=== PATIENT | male | born 1950 | race Caucasian/White ===

== ENCOUNTER → 2017-01-15 | Outpatient (CLI) | payer MEDICARE ==
[2017-01-15 10:59] LABS: Basophils % (A) 0 %; CH 32.3; CHCM 34.8; Eosinophils # (A) 0.2 k/uL (0-0.7); Eosinophils % (A) 4 %; HCT 45.4 % (39.0-53.0); Luc # (Auto) 0.09; Luc % (Auto) 2; Lymphocytes # (A) 1.3 k/uL (1.0-4.8); Lymphocytes % (A) 29 %; MCH 30.7 pg (25.0-35.0); MCHC 32.9 g/dL (31.0-37.0); MCV 93.3 fL (80.0-100.0); Mean Platelet Volume 6.6; Monocytes # (A) 0.3 k/uL (0-1.0); Monocytes % (A) 7 %; Neutrophils # (A) 2.5 k/uL (1.3-7.7); Neutrophils % (A) 58 %; RBC 4.87 m/uL (4.30-5.90); RDW 12.6 % (11.5-15.5); WBC 4.3 k/uL (3.8-10.6); WBC (Perox) 4.33
[2017-01-15 11:47] LABS: ALT 34 U/L (21-72); AST 22 U/L (17-59); Blood Urea Nitrogen 15 mg/dL (9-20); C Reactive Protein <5.0 mg/L (<10.0); Non-African American GFR(MDRD) >60 (>60 ml/min/1.73 sqM)
[2017-01-15 13:34] LABS: Erythrocyte Sedimentation Rate 9 mm/hr (0-15)
== END | disposition home or self-care (01) ==
LOC: LABWHC1 10:22
PROVIDERS: ATTEND Internal Medicine Rheumatology
DX: N18.9 Chronic kidney disease, unspecified (principal); D63.8 Anemia in other chronic diseases classified elsewhere; M25.50 Pain in unspecified joint; R77.0 Abnormality of albumin; Z79.1 Long term (current) use of non-steroidal anti-inflammatories (NSAID)
CPT/HCPCS: 36415; 82040; 82565; 84450; 84460; 84520; 85025; 85652; 86140

== ENCOUNTER → 2017-12-22 | Outpatient (CLI) | payer MEDICARE ==
[2017-12-22 16:04] LABS: Basophils % (A) 0 %; Eosinophils # (A) 0.1 k/uL (0-0.7); Eosinophils % (A) 2 %; HCT 42.7 % (39.0-53.0); HGB 14.1 gm/dL (13.0-17.5); Lymphocytes # (A) 1.2 k/uL (1.0-4.8); Lymphocytes % (A) 26 %; MCH 30.3 pg (25.0-35.0); MCV 91.7 fL (80.0-100.0); Mean Platelet Volume 6.5; Monocytes # (A) 0.3 k/uL (0-1.0); Monocytes % (A) 5 %; Neutrophils # (A) 3.1 k/uL (1.3-7.7); Neutrophils % (A) 65 %; Platelet Count 165 k/uL (150-450); RBC 4.66 m/uL (4.30-5.90); RDW 12.7 % (11.5-15.5); WBC 4.7 k/uL (3.8-10.6)
[2017-12-22 16:17] LABS: ALT 23 U/L (21-72); AST 21 U/L (17-59); Albumin 4.2 g/dL (3.5-5.0); Blood Urea Nitrogen 12 mg/dL (9-20); C Reactive Protein <5.0 mg/L (<10.0); Total Bilirubin 0.6 mg/dL (0.2-1.3)
[2017-12-22 17:15] LABS: Calcium 9.5 mg/dL (8.4-10.2)
[2017-12-22 17:39] LABS: Erythrocyte Sedimentation Rate 9 mm/hr (0-15)
[2017-12-23 02:16] LABS: Parathyroid Hormone Intact 31.5 pg/mL (14.0-72.0)
[2017-12-23 04:24] LABS: Vitamin D 25 Hydroxy 31.9 ng/mL (30.0-100.0)
== END | disposition home or self-care (01) ==
LOC: LABWHC1 15:02
PROVIDERS: ATTEND Internal Medicine Rheumatology
DX: M35.3 Polymyalgia rheumatica (principal); G62.9 Polyneuropathy, unspecified; M25.50 Pain in unspecified joint; N18.9 Chronic kidney disease, unspecified; R77.0 Abnormality of albumin; E80.7 Disorder of bilirubin metabolism, unspecified; E55.9 Vitamin D deficiency, unspecified; E21.0 Primary hyperparathyroidism; Z79.1 Long term (current) use of non-steroidal anti-inflammatories (NSAID)
CPT/HCPCS: 36415; 82040; 82247; 82306; 82310; 82565; 83970; 84450; 84460; 84520; 85025; 85652; 86140

== ENCOUNTER 2024-01-25 18:39 | Observation (INO) | payer MEDICARE ==
--- NOTE | 2024-01-25 18:58 | ED ---
Dizziness HPI - General Chief Complaint: Dizziness Stated Complaint: Dizziness Time Seen by Provider: 01/25/24 18:55 Source: patient, EMS, RN notes reviewed, old records reviewed Mode of arrival: EMS Limitations: no limitations - History of Present Illness Initial Comments: This is a 73-year-old male to the ER for evaluation of some dizziness today. [facility] [place] he started at 2 PM with a room significantly spinning and difficulty with ambulation secondary to dizziness and feeling off balance. No history of heart disease no history of stroke MD Complaint: dizziness Timing: sudden onset, gradual onset Description: "room spinning", lightheadedness, off-balance, nausea, near-syncope History of Same: No History of Trauma: No Severity: moderate Improves With: nothing Worsens With: nothing Associated Symptoms: denies other symptoms - Related Data Home Medications Medication Instructions Recorded Confirmed Aspirin EC [Ecotrin Low Dose] 81 mg PO DAILY 01/26/24 01/26/24 Carbidopa-Levodopa 25-100 mg 2 tab PO TID@0700,1200,1700 01/26/24 01/26/24 [Sinemet 25-100 mg] Cholecalciferol (Vitamin D3) 50 mcg PO DAILY 01/26/24 01/26/24 [Vitamin D3 (50 Mcg = 2000 Iu)] Cyanocobalamin (Vitamin B-12) 1,000 mcg PO DAILY 01/26/24 01/26/24 [Vitamin B-12] Multivitamins, Thera [Multivitamin 1 tab PO DAILY 01/26/24 01/26/24 (formulary)] Pregabalin [Lyrica] 50 mg PO HS 01/26/24 01/26/24 Psyllium Husk [Metamucil] 0.4 gm PO BID 01/26/24 01/26/24 Rosuvastatin Calcium [Crestor] 5 mg PO DAILY 01/26/24 01/26/24 Allergies Allergy/AdvReac Type Severity Reaction Status Date / Time No Known Allergies Allergy Verified 01/26/24 07:07 Review of Systems ROS Statement: Those systems with pertinent positive or pertinent negative responses have been documented in the HPI. ROS Other: All systems not noted in ROS Statement are negative. Past Medical History Past Medical History: Neurologic Disorder Additional Past Medical History / Comment(s): Parkinson's, Neuropathy, Exposed to agent orange and contaminated water [place], has PVC's History of Any Multi-Drug Resistant Organisms: None Reported Past Surgical History: Orthopedic Surgery Additional Past Surgical History / Comment(s): left knee cyst and minuscus repair, left ankle. Past Psychological History: No Psychological Hx Reported Smoking Status: Never smoker Past Alcohol Use History: None Reported Past Drug Use History: None Reported General Exam Limitations: no limitations General appearance: alert, in no apparent distress Head exam: Present: atraumatic, normocephalic, normal inspection Eye exam: Present: normal appearance, PERRL, EOMI. Absent: scleral icterus, conjunctival injection, periorbital swelling ENT exam: Present: normal exam, mucous membranes moist Neck exam: Present: normal inspection. Absent: tenderness, meningismus, lymphadenopathy Respiratory exam: Present: normal lung sounds bilaterally. Absent: respiratory distress, wheezes, rales, rhonchi, stridor Cardiovascular Exam: Present: regular rate, normal rhythm, normal heart sounds. Absent: systolic murmur, diastolic murmur, rubs, gallop, clicks GI/Abdominal exam: Present: soft, normal bowel sounds. Absent: distended, tenderness, guarding, rebound, rigid Extremities exam: Present: normal inspection, full ROM, normal capillary refill. Absent: tenderness, pedal edema, joint swelling, calf tenderness Back exam: Present: normal inspection Neurological exam: Present: alert, oriented X3, CN II-XII intact Psychiatric exam: Present: normal affect, normal mood Skin exam: Present: warm, dry, intact, normal color. 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 ] Respiratory 18 18 18 Rate Blood Pressure 183/88 150/79 135/72 Blood Pressure [Left Arm] O2 Sat by Pulse 98 96 95 Oximetry 01/26/24 01/26/24 01/26/24 00:00 02:00 06:00 Temperature Pulse Rate 49 L 48 L 45 L Pulse Rate [ 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 ] Respiratory 18 18 16 Rate Blood Pressure 119/67 131/69 125/64 Blood Pressure [Left Arm] O2 Sat by Pulse 95 95 93 L Oximetry 01/26/24 01/26/24 01/27/24 10:27 18:59 00:00 Temperature 97.8 F Pulse Rate 48 L 86 Pulse Rate [ 59 L 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 ] Respiratory 18 18 18 Rate Blood Pressure 139/73 136/63 Blood Pressure 136/65 [Left Arm] O2 Sat by Pulse 94 L 98 98 Oximetry 01/27/24 01/27/24 04:00 08:20 Temperature Pulse Rate 51 L Pulse Rate [ 47 L 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 ] Respiratory 16 16 Rate Blood Pressure 152/77 Blood Pressure 144/69 [Left Arm] O2 Sat by Pulse 95 98 Oximetry - Reevaluation(s) Reevaluation #1: 01/25/24 18:57 Medical records are reviewed Reevaluation #2: 01/25/24 21:44 Patient able to ambulate here in the ER without significant ataxia Reevaluation #3: 01/25/24 21:44 Patient informed of results questions answered Reevaluation #4: Was pt. sent in by a medical professional or institution (, PA, APPLICATION TECHNICAL DESIGNER, urgent care, hospital, or long term...) When possible be specific @ -no Did you speak to anyone other than the patient for history (EMS, parent, family, police, friend...)? What history was obtained from this source @ -no Did you review nursing and triage notes (agree or disagree)? Why? @ -agree Are old charts reviewed (outside hosp., previous admission, EMS record, old EKG, old radiological studies, urgent care reports/EKG's, long term records)? Report findings @ -yes Differential Diagnosis (chest pain, altered mental status, abdominal pain women, abdominal pain men, vaginal bleeding, weakness, fever, dyspnea, syncope, headache, dizziness, GI bleed, back pain, seizure, CVA, palpatations, mental health, musculoskeletal)? @ -prior EKG interpreted by me (3pts min.). @ -yes X-rays interpreted by me (1pt min.). @ -yes negative for acute disease CT interpreted by me (1pt min.). @ -Yes negative for acute disease U/S interpreted by me (1pt. min.). @ -no What testing was considered but not performed or refused? (CT, X-rays, U/S, labs)? Why? @ -none What meds were considered but not given or refused? Why? @ -none Did you discuss the management of the patient with other professionals (professionals i.e. , PA, APPLICATION TECHNICAL DESIGNER, lab, RT, psych nurse, social science teacher, thread laster, teacher, compliance review officer, case management assistant)? Give summary @ -no Was smoking cessation discussed for >3mins.? @ -no Was critical care preformed (if so, how long)? @ -no Were there social determinants of health that impacted care today? How? (Homelessness, low income, unemployed, alcoholism, drug addiction, transportation, low edu. Level, literacy, decrease access to med. care, residential, rehab)? @ -none Was there de-escalation of care discussed even if they declined (Discuss DNR or withdrawal of care, Hospice)? DNR status @ -no What co-morbidities impacted this encounter? (DM, HTN, Smoking, COPD, CAD, Cancer, CVA, ARF, Chemo, Hep., AIDS, mental health diagnosis, sleep apnea, morbid obesity)? @ -none Was patient admitted / discharged? Hospital course, mention meds given and route, prescriptions, significant lab abnormalities, going to OR and other pertinent info. @ - 73 male to ER for evaluation of vertigo. Central versus peripheral, patie nt CT CTA negative able to ambulate here in the ER, given aspirin will be an patient continues to feel worse here in the ER and will admit for further observation admitted Undiagnosed new problem with uncertain prognosis? @ -no Drug Therapy requiring intensive monitoring for toxicity (Heparin, Nitro, Insulin, Cardizem)? @ -no Were any procedures done? @ -no Diagnosis/symptom? @ -CVA vertigo versus TIA central versus peripheral Acute, or Chronic, or Acute on Chronic? @ -Acute Uncomplicated (without systemic symptoms) or Complicated (systemic symptoms)? @ -Complicated Side effects of treatment? @ -no Exacerbation, Progression, or Severe Exacerbation? @ -exacerbation Poses a threat to life or bodily function? How? (Chest pain, USA, GA, pneumonia, PE, COPD, DKA, ARF, appy, cholecystitis, CVA, Diverticulitis, Homicidal, Suicidal, threat to staff... and all critical care pts) @ -yes extremes of age with CVA Reevaluation #5: Differential Dizziness: Benign paroxysmal positional Vertigo, Meniere's disease, otitis media, acoustic neuroma, vertebrobasilar insufficiency, cerebellar stroke, encephalitis, hypovolemic, arrhythmia, coronary artery syndrome, anemia, this is not meant to be an all-inclusive list - Consultations Consultation #1: Spoke with admitting physicians who agreed to admit this patient EKG Findings - EKG Comments: EKG Findings:: EKG is sinus bradycardia 51 MD 139 QRS 109 QTc 407 - EKG Results: EKG: interpreted by YANCY Medical Decision Making - Medical Decision Making 73 male to ER for evaluation of vertigo. Central versus peripheral, patient CT CTA negative able to ambulate here in the ER, given aspirin will be an patient continues to feel worse here in the ER and will admit for further observation - Lab Data Result diagrams: 01/27/24 05:45 01/27/24 05:45 Lab Results 01/25/24 01/25/24 01/25/24 Range/Units 19:39 19:39 19:39 WBC 7.0 (3.8-10.6) k/uL RBC 4.68 (4.30-5.90) m/uL Hgb 15.0 (13.0-17.5) gm/dL Hct 43.8 (39.0-53.0) % MCV 93.4 (80.0-100.0) fL MCH 32.1 (25.0-35.0) pg MCHC 34.4 (31.0-37.0) g/dL RDW 13.1 (11.5-15.5) % Plt Count 181 (150-450) k/uL MPV 7.8 Neutrophils % 78 % Lymphocytes % 14 % Monocytes % 5 % Eosinophils % 1 % Basophils % 0 % Neutrophils # 5.5 (1.3-7.7) k/uL Lymphocytes # 1.0 (1.0-4.8) k/uL Monocytes # 0.3 (0-1.0) k/uL Eosinophils # 0.1 (0-0.7) k/uL Basophils # 0.0 (0-0.2) k/uL PT 10.4 (10.0-12.5) sec INR 0.9 (<1.2) APTT 22.0 (22.0-30.0) sec Sodium 139 (137-145) mmol/L Potassium 4.2 (3.5-5.1) mmol/L Chloride 107 (98-107) mmol/L Carbon Dioxide 27 (22-30) mmol/L Anion Gap 5 mmol/L BUN 13 (9-20) mg/dL Creatinine 0.82 (0.66-1.25) mg/dL Est GFR (CKD-EPI)AfAm >90 (>60 ml/min/1.73 sqM) Est GFR (CKD-EPI)NonAf 87 (>60 ml/min/1.73 sqM) Glucose 124 H (74-99) mg/dL Lactic Ac Sepsis Rflx Plasma Lactic Acid Darek (0.7-2.0) mmol/L Calcium 8.5 (8.4-10.2) mg/dL Phosphorus 2.5 (2.5-4.5) mg/dL Magnesium 1.8 (1.6-2.3) mg/dL Total Bilirubin 0.7 (0.2-1.3) mg/dL AST 27 (17-59) U/L ALT 9 (4-49) U/L Alkaline Phosphatase 64 (38-126) U/L Troponin I (0.000-0.034) ng/mL NT-Pro-B Natriuret Pep 84 pg/mL Total Protein 7.3 (6.3-8.2) g/dL Albumin 4.5 (3.5-5.0) g/dL Lipase 130 (23-300) U/L TSH 1.500 (0.465-4.680) mIU/L 01/25/24 01/25/24 01/25/24 Range/Units 19:39 19:39 20:16 WBC (3.8-10.6) k/uL RBC (4.30-5.90) m/uL Hgb (13.0-17.5) gm/dL Hct (39.0-53.0) % MCV (80.0-100.0) fL MCH (25.0-35.0) pg MCHC (31.0-37.0) g/dL RDW (11.5-15.5) % Plt Count (150-450) k/uL MPV Neutrophils % % Lymphocytes % % Monocytes % % Eosinophils % % Basophils % % Neutrophils # (1.3-7.7) k/uL Lymphocytes # (1.0-4.8) k/uL Monocytes # (0-1.0) k/uL Eosinophils # (0-0.7) k/uL Basophils # (0-0.2) k/uL PT (10.0-12.5) sec INR (<1.2) APTT (22.0-30.0) sec Sodium (137-145) mmol/L Potassium (3.5-5.1) mmol/L Chloride (98-107) mmol/L Carbon Dioxide (22-30) mmol/L Anion Gap mmol/L BUN (9-20) mg/dL Creatinine (0.66-1.25) mg/dL Est GFR (CKD-EPI)AfAm (>60 ml/min/1.73 sqM) Est GFR (CKD-EPI)NonAf (>60 ml/min/1.73 sqM) Glucose (74-99) mg/dL Lactic Ac Sepsis Rflx Y Plasma Lactic Acid Darek 2.3 H* (0.7-2.0) mmol/L Calcium (8.4-10.2) mg/dL Phosphorus (2.5-4.5) mg/dL Magnesium (1.6-2.3) mg/dL Total Bilirubin (0.2-1.3) mg/dL AST (17-59) U/L ALT (4-49) U/L Alkaline Phosphatase (38-126) U/L Troponin I <0.012 (0.000-0.034) ng/mL NT-Pro-B Natriuret Pep pg/mL Total Protein (6.3-8.2) g/dL Albumin (3.5-5.0) g/dL Lipase (23-300) U/L TSH (0.465-4.680) mIU/L - Radiology Data Radiology results: report reviewed (CT brain CTA head neck negative for acute disease), image reviewed Disposition Clinical Impression: Benign paroxysmal positional vertigo, Transient cerebral ischemia Disposition: ADMITTED IP TO THIS [facility] Condition: Fair Is patient prescribed a controlled substance at d/c from ED?: No Time of Disposition: 21:40
[2024-01-25] MEDS: SODIUM CHLORIDE 0.9% 1,000 ML IV STA (19:44)
[2024-01-25 19:58] LABS: INR 0.9 (<1.2); Prothrombin Time 10.4 sec (10.0-12.5)
[2024-01-25 20:04] LABS: ALT 9 U/L (4-49); AST 27 U/L (17-59); African American GFR (CKD) >90 (>60 ml/min/1.73 sqM); Albumin 4.5 g/dL (3.5-5.0); Alkaline Phosphatase 64 U/L (38-126); Anion Gap 5 mmol/L; Blood Urea Nitrogen 13 mg/dL (9-20); Calcium 8.5 mg/dL (8.4-10.2); Carbon Dioxide 27 mmol/L (22-30); Chloride 107 mmol/L (98-107); Glucose 124 mg/dL (74-99); Lipase 130 U/L (23-300); Magnesium 1.8 mg/dL (1.6-2.3); Non-African American GFR(CKD) 87 (>60 ml/min/1.73 sqM); Phosphorus 2.5 mg/dL (2.5-4.5); Potassium 4.2 mmol/L (3.5-5.1); Sodium 139 mmol/L (137-145); Total Bilirubin 0.7 mg/dL (0.2-1.3); Total Protein 7.3 g/dL (6.3-8.2)
--- NOTE | 2024-01-25 20:04 | CT ---
EXAMINATION TYPE: CT brain wo con DATE OF EXAM: 01/25/2024 7:31 PM COMPARISON: None.. CLINICAL INDICATION: Male, 73 years old with history of weakness, dizzy TECHNIQUE: Brain: Axial CT images of the brain were obtained with coronal and sagittal reformats created and rev iewed. Contrast used: None. Oral contrast used: None. CT DLP: 1189 mGycm, Automated exposure control for dose reduction was used. FINDINGS: Brain: Extra-axial spaces: No abnormal extra-axial fluid collections. Ventricular system: Within normal limits Cerebral parenchyma: No acute intraparenchymal hemorrhage or mass effect. The morataya-white junction is well differentiated. Cerebellum: Unremarkable. Mass effect: No evidence of midline shift. Intracranial vasculature: unremarkable Soft tissues: Normal. Calvarium/osseous structures: No depressed skull fracture. Paranasal sinuses and mastoid air cells: Mild scattered paranasal sinus disease. Visualized orbits: Orbital contents are intact. IMPRESSION: No acute intracranial process. [facility], , 01/25/2024 8:02 PM
[2024-01-25 20:05] LABS: Basophils % (A) 0 %; Eosinophils # (A) 0.1 k/uL (0-0.7); Eosinophils % (A) 1 %; HCT 43.8 % (39.0-53.0); Lymphocytes % (A) 14 %; MCH 32.1 pg (25.0-35.0); MCHC 34.4 g/dL (31.0-37.0); MCV 93.4 fL (80.0-100.0); Mean Platelet Volume 7.8; Monocytes # (A) 0.3 k/uL (0-1.0); Monocytes % (A) 5 %; Neutrophils # (A) 5.5 k/uL (1.3-7.7); Neutrophils % (A) 78 %; Platelet Count 181 k/uL (150-450); RBC 4.68 m/uL (4.30-5.90); RDW 13.1 % (11.5-15.5)
[2024-01-25 20:10] LABS: NT-Pro-B-Type Natriuretic Pept 84 pg/mL
[2024-01-25] MEDS: ONDANSETRON 4 MG/2 ML VIAL IVP STA (20:22)
[2024-01-25] MEDS: diphenhydrAMINE 50 MG/ML 1 ML VIAL IVP STA (20:23)
--- NOTE | 2024-01-25 21:32 | CT ---
EXAMINATION TYPE: CT angio head neck DATE OF EXAM: 01/25/2024 9:13 PM COMPARISON: none CLINICAL INDICATION: Male, 73 years old with history of dizzy; PHH, DIZZINESS TECHNIQUE: Axially acquired helical CT angiogram of the head and neck was obtained with contrast. Axi al images are supplemented with 3D reconstructions and MIP images which were post-processed at an in dependent workstation. NASCET criteria used. Contrast used:65ml mL of Isovue 370 with IV Contrast, Oral contrast used: None. CT DLP: 513 mGycm, Automated exposure control for dose reduction was used. FINDINGS: CTA HEAD: No evidence of acute intracranial hemorrhage, mass effect, or midline shift. The ventricles, sulci, a nd cisterns are unremarkable. Vertebral arteries: The vertebral arteries are patent. Vertebral artery dominance: Codominant Basilar artery: The basilar artery is intact. The basilar artery bifurcation is normal. Internal Carotid arteries: The cervical, petrous, cavernous and supraclinoid segments are normal. MEI: Patent with no evidence of aneurysm. ACOM: Present without evidence of aneurysm. MCA: Patent with no evidence of aneurysm. CONSTRUCTION PROJECT ASSISTANT: Patent with no evidence of aneurysm. PCOM: Hypoplastic bilaterally. Dural sinuses: Patent. CTA NECK: Right Carotid System: The common carotid artery and external carotid artery are patent. The carotid bifurcation demonstrate s no evidence of hemodynamically significant stenosis. The remaining portions of the internal carotid artery demonstrate normal size without significant narrowing. Left Carotid System: The common carotid artery and external carotid artery are patent. The carotid bifurcation demonstrate s no evidence of hemodynamically significant stenosis. The remaining portions of the internal carotid artery demonstrate normal size without significant narrowing. Vertebral arteries are patent without evidence hemodynamically significant stenosis. There is a 4-vessel aortic arch. The origins of the great vessels are patent. No evidence of hemodyna mically significant stenosis. Upper thorax: IMPRESSION: No evidence of dissection of the cervical internal carotid arteries or vertebral arteries. No any evidence of significant stenosis at the carotid bifurcations. No evidence of intracranial high-grade stenosis or intracranial aneurysm. [facility], , 01/25/2024 9:29 PM
[2024-01-25] MEDS: ASPIRIN 81 MG PO STA (22:08)
[2024-01-25] MEDS: ASPIRIN 325 MG TAB PO STA (22:26)
[2024-01-25] MEDS: SODIUM CHLORIDE 0.9% 1,000 ML IV SCH (22:27)
--- NOTE | 2024-01-26 10:27 | CA ---
Transthoracic Echo Report Name: Ty Castillo Age: 73 Gender: M : 1950 Exam Date: 01/26/2024 10:16 Exam Location: [facility] Ht (in): 68 Wt (lb): 175 Ordering Physician: Syed Guzmán DO Attending/Referring Phys: [id number], Ramirez Dining Server Krystina Gloria RDCS Procedure CPT: Indications: Thrombus Cardiac Hx: Technical Quality: Fair Contrast 1: Total Dose (mL): Contrast 2: Total Dose (mL): MEASUREMENTS (Male / Female) Normal Values 2D ECHO LV Diastolic Diameter PLAX 4.6 cm 4.2 - 5.9 / 3.9 - 5.3 cm LV Systolic Diameter PLAX 2.0 cm IVS Diastolic Thickness 1.1 cm 0.6 - 1.0 / 0.6 - 0.9 cm LVPW Diastolic Thickness 1.1 cm 0.6 - 1.0 / 0.6 - 0.9 cm LV Relative Wall Thickness 0.5 RV Internal Dim ED PLAX 2.4 cm LA Systolic Diameter LX 4.3 cm 3.0 - 4.0 / 2.7 - 3.8 cm LV Diastolic Volume MOD BP 54.7 cm??? 67 - 155 / 56 - 104 cm??? LV Systolic Volume MOD BP 27.0 cm??? 22 - 58 / 19 - 49 cm??? LV Ejection Fraction MOD BP 50.6 % >= 55 % LV Cardiac Index MOD BP 704.1 cm???/min???m??? LV Diastolic Volume MOD 4C 61.7 cm??? LV Systolic Volume MOD 4C 30.1 cm??? LV Ejection Fraction MOD 4C 51.2 % LV Cardiac Index MOD 4C 803.6 cm???/min???m??? LV Diastolic Length 4C 7.5 cm LV Systolic Length 4C 6.2 cm LV Diastolic Volume MOD 2C 44.6 cm??? LV Systolic Volume MOD 2C 23.1 cm??? LV Ejection Fraction MOD 2C 48.3 % LV Cardiac Index MOD 2C 547.7 cm???/min???m??? LV Diastolic Length 2C 6.8 cm LV Systolic Length 2C 5.8 cm LA Volume 57.1 cm??? 18 - 58 / 22 - 52 cm??? LA Volume Index 29.0 cm???/m??? 16 - 28 cm???/m??? M-MODE Aortic Root Diameter MM 2.1 cm LA Systolic Diameter MM 3.9 cm LA Ao Ratio MM 1.8 DOPPLER AI Peak Velocity 317.4 cm/s AI Peak Gradient 40.3 mmHg AI Pressure Half Time 917.0 ms MV Area PHT 3.9 cm??? Mitral E Point Velocity 92.7 cm/s Mitral A Point Velocity 95.2 cm/s Mitral E to A Ratio 1.0 MV Deceleration Time 194.0 ms TR Peak Velocity 240.6 cm/s TR Peak Gradient 23.2 mmHg Right Ventricular Systolic Press 27.9 mmHg FINDINGS Left Ventricle Left ventricular ejection fraction is estimated at 55-60 %. Mildly increased septal wall thickness.normal left ventricular wall motion. Left ventricular cavity size normal. Right Ventricle Mild right ventricular dilatation. Right ventricular systolic pressure within normal limits. Right Atrium Normal right atrial size. Left Atrium Mildly increased left atrial diameter. Mildly increased left atrial volume. Mitral Valve Structurally normal mitral valve. Mild mitral regurgitation. No mitral stenosis. Aortic Valve Trileaflet aortic valve. No aortic stenosis. Mild aortic regurgitation. Tricuspid Valve Structurally normal tricuspid valve. Mild tricuspid regurgitation. No tricuspid stenosis. Pulmonic Valve Structurally normal pulmonic valve. Trace pulmonic regurgitation. No pulmonic stenosis. Pericardium No pericardial or pleural effusion. Aorta Normal size aortic root and proximal ascending aorta. CONCLUSIONS Normal LV function Mild mitral regurgitation Mild aortic regurgitation No intracardiac thrombus identified on this study Consider transesophageal echo if clinically indicated Previewed by: Dr. Jean Pina MD (Electronically Signed) Final Date: 26 January 2024 10:26
[2024-01-26] MEDS: ASPIRIN 325 MG TAB PO SCH (10:29)
[2024-01-26] MEDS: CARBIDOPA-LEVODOPA ER 25-100MG 1 EACH TABLET.ER PO SCH (10:31)
[2024-01-26 11:01] LABS: Chol/HDL Ratio 3.71 Ratio; LDL Cholesterol,Calculated 70.2 mg/dL (0.0-131.0)
[2024-01-26] MEDS: CARBIDOPA-LEVODOPA 25-100 MG 1 EACH TAB PO SCH (12:28)
--- NOTE | 2024-01-26 14:44 | P.CNNES ---
History of Present Illness Consult date: 01/26/24 Requesting physician: Syed Guzmán Reason for Consult: vertigo History of Present Illness: This is a 73-year-old gentleman who presented emergency department because of dizziness. Patient is accompanied with his was at bedside. He states that he was dizzy and felt like the room is moving recently. Also yesterday when he came to the our facility he had episode of nausea and vomiting. He denies any new focal weakness, numbness, visual disturbance, any new ringing of the ears or hearing loss. He does have chronic tinnitus. He feels he is doing better today compared to yesterday. Denies any history of stroke. He denies any modification of his Parkinson's medication. He feels dizziness is mostly when getting up. Some of the work-up consists of: I personally reviewed the lab test TSH is 1.50 CT of the head is reported as no acute intracranial process. I personally reviewed the CT and I agree with the report CT angiography of the head and neck is reported as no evidence of dissection of cervical internal carotid artery or vertebral artery. No any evidence of significant stenosis at the carotid bifurcation. No evidence of intracranial high-grade stenosis or intracranial aneurysm. 2D echo was reported as normal left ventricular function. Mild mitral and aortic regurgitation. No intracardiac thrombus identified on the study. Review of Systems The positive and negative as per HPI. Past Medical History Past Medical History: Neurologic Disorder Additional Past Medical History / Comment(s): Parkinson's, Neuropathy, Exposed to agent orange and contaminated water at [facility], has PVC's History of Any Multi-Drug Resistant Organisms: None Reported Past Surgical History: Orthopedic Surgery Additional Past Surgical History / Comment(s): left knee cyst and minuscus repair, left ankle. Past Psychological History: No Psychological Hx Reported Smoking Status: Never smoker Past Alcohol Use History: None Reported Past Drug Use History: None Reported Medications and Allergies Home Medications Medication Instructions Recorded Confirmed Type Aspirin EC [Ecotrin Low Dose] 81 mg PO DAILY 01/26/24 01/26/24 History Carbidopa-Levodopa 25-100 mg 2 tab PO TID@0700,1200,1700 01/26/24 01/26/24 History [Sinemet 25-100] Cholecalciferol (Vitamin D3) 50 mcg PO DAILY 01/26/24 01/26/24 History [Vitamin D3 (50 Mcg = 2000 Iu)] Cyanocobalamin (Vitamin B-12) 1,000 mcg PO DAILY 01/26/24 01/26/24 History [Vitamin B-12] Multivitamins, Thera [Multivitamin 1 tab PO DAILY 01/26/24 01/26/24 History (formulary)] Pregabalin [Lyrica] 50 mg PO HS 01/26/24 01/26/24 History Psyllium Husk [Metamucil] 0.4 gm PO BID 01/26/24 01/26/24 History Rosuvastatin Calcium [Crestor] 5 mg PO DAILY 01/26/24 01/26/24 History Allergies Allergy/AdvReac Type Severity Reaction Status Date / Time No Known Allergies Allergy Verified 01/26/24 07:07 Physical Examination - Vital Signs Vital Signs: Vital Signs Temp Pulse Resp BP Pulse Ox 01/26/24 10:27 48 L 18 139/73 94 L 01/26/24 06:00 45 L 16 125/64 93 L 01/26/24 02:00 48 L 18 131/69 95 01/26/24 00:00 49 L 18 119/67 95 01/25/24 22:00 55 L 18 135/72 95 01/25/24 19:40 50 L 18 150/79 96 01/25/24 18:40 98.3 F 54 L 18 183/88 98 Intake and Output 01/25/24 01/26/24 01/26/24 22:59 06:59 14:59 Other: Weight 79.379 kg GENERAL: The patient is lying in bed and is not in acute distress. NEUROLOGICAL: Higher mental function: The patient is awake, alert, oriented to self, place and time. Patient is following commands. No aphasia and no neglect. Cranial nerves: The pupils are round, equal and reactive to light and accommodation. Visual yung are full to confrontation throughout. Extraocular movement is intact no nystagmus is noted. Facial sensation is normal to touch throughout. The facial strength is normal throughout. Hearing is normal bilaterally to hand rub. Tongue is midline and moved [id number] without any difficulty. No dysarthria is noted. Shoulder shrug is normal bilaterally. Motor: Gait is walking without assistance and has some shuffling gait (but states did not have his Parkinson's mediaiton yet) but otherwise normal. The strength is 5 over 5 throughout. Normal tone and bulk. Cerebellum: Normal finger to nose bilaterally. Sensation: Sensation is normal to touch throughout. Reflexes (right/left): 2+ Plantars are downgoing bilaterally. Results - Laboratory Findings CBC and BMP: 01/25/24 19:39 01/25/24 19:39 Abnormal Lab Findings: Abnormal Labs 01/25/24 01/25/24 01/26/24 19:39 19:39 06:37 Glucose 124 H Plasma Lactic Acid Darek 2.3 H* HDL Cholesterol 34.80 L Assessment and Plan Assessment: This is a 73-year-old gentleman who presents because of dizziness and he feels the room is moving and he had an episode of nausea vomiting. No focal deficit associate with it. He is feeling better today. Acute Vertigo and seems more peripheral. I doubt this is stroke or TIA. Ongoing Parkinson's disease Plan: Recommend MRI of the brain Ordered orthostatic vitals Patient was on home dose of Aspirin 81mg daily and it was increased to 325mg daily by ED team. ED physician placed the patient on Lipitor 80 mg nightly for secondary stroke fluxes and I lowered it to 4 mg nightly since I do not feel this is stroke. Upon discharge she does not need Lipitor and he can resume his home Crestor PT and OT and RAPID TRANSIT OPERATOR are consulted. Will defer the rest of the medical management to primary team and other specialist Plan discussed with the patient and his was at bedside Thank you for the consultation Time with Patient: Greater than 30
--- NOTE | 2024-01-26 17:59 | P.HPIM ---
History of Present Illness H&P Date: 01/26/24 Chief Complaint: Dizziness Patient is a 73-year-old male past medical history of parkinsonism who presented to the ED yesterday with dizziness. He states the dizziness started yesterday at 2 PM after which he tried to rest on his recliner. His symptoms did not improve when he got up and went to his bed. A couple hours later he reports that room was significantly spinning and he had difficulty with ambulation and he felt off balance. Does not report of any similar symptoms prior to this time. He mentions going to [place] a couple days ago where he drove couple hours to and fro and spent the entire day walking and shopping and had not drank enough water. Additionally he reports having motion sickness, he is dizzy even if his is in a rocking chair. Moreover he mentions that he has always had low heart rate, usually in the 50s and in the 40s when he is resting. Patient denies fever, chills, headache, chest pain, shortness of breath, palpitations, a bdominal pain, nausea, vomiting, hematuria, dysuria, hematochezia or melena, numbness, weakness or visual disturbance. He also mentions that he recently found out he had been exposed to agent orange and contaminated water when he was working in the . ED documentation reviewed and case discussed with ED provider. In the ED he was treated with aspirin 325 mg and aspirin 324 mg as well as 0.9 normal saline 100 mL/h along with diphenhydramine 25 mg IVP once and ondansetron 4 mg IVP once. Vitals on admission: T 98.3 F, P 54 bpm, RR 18, BP 183/88, O2 sat 98% on room air EKG: Independently interpreted as sinus bradycardia, rate 51 bpm, QTc [address]: No acute intracranial process CT angiography head and neck: No evidence of dissection of the cervical internal carotid arteries or vertebral arteries, no evidence of significant stenosis of the carotid bifurcation, no evidence of intracranial high-grade stenosis or intracranial aneurysm. 2D Echo: EF 55 to 60% normal LV function, mild MR, mild AR, no intracardiac thrombus. CBC: WBC 7, hemoglobin 15, platelet 181 Coagulation panel: PT 10.4, INR 0.9, APTT 22 CMP sodium 139, potassium 4.2, glucose 124, lactic acid 2.3->2.0 Lipid panel triglycerides 120, cholesterol 129, LDL 70.2, VLDL 24, HDL 34.8, lipase 130 TSH: 1.5 ProBNP: 84 Troponin: < 0.012 Review of systems: Pertinent positives and negatives as discussed in HPI, a complete review of systems was performed and all other systems are negative. PMH: Parkinsonism, neuropathy, tinnitus PSH: Orthopedic surgery, meniscus repair FMH: Diabetes mellitus Allergies: No known drug allergies Social history: Tobacco: Never smoker Alcohol: Denies use Recreational drugs: Denies use Travel: [place] couple days ago Sick contacts: None Physical examination: General: nontoxic, no distress, appears at stated age Derm: warm, dry, intact Head: atraumatic, normocephalic, symmetric Eyes: EOMI, anicteric sclera Mouth: no lip lesion, mucus membranes moist Cardiovascular: S1 S2 reg, no murmur Lungs: CTA bilateral, no rhonchi, no rales, no accessory muscle use Abdominal: soft, non-tender to palpataion Extremities: No cyanosis, clubbing, or pedal edema. Neuro: Alert, Oriented, Gross neurological examination did not reveal any focal deficits. Psych: well appearing, appropriate affect Assessment/Plan: Patient is a 73 year old male with PMH of Parkinsonism and neuropathy who presented to the ED with dizziness and room spinning. He has admitted for further workup of dizziness. #. Postural dizziness, secondary to orthostatic hypotension vs vertigo Possibly orthostatic hypotension secondary to Parkinson's disease Brain CT and CT angio H&N show no acute process, r/o stroke Orthostatics BID ordered Continue Aspirin 325mg PO QD and Atorvastatin 40 mg nightly Continue 0.9 normal saline at 100 ml/hr #. Parkinson's disease Continue home med Carbidopa-Levodopa F: 0.9 normal saline at 100ml/hr E: Replete as required N: Regular diet A: Ambulatory The patient is admitted with an anticipated less than 2 midnight stay for evaluation of dizziness CODE STATUS: Full Code Discussed with: Patient and Anticipated discharge place: Home Attestation Attestation/ International Controller Note: Attestation to Progress Note, Participation (I saw and evaluated the patient with the Resident, and I reviewed and discussed the patient with the Resident and agree with the Resident's findings and plans as documented above., management reviewed and discussed), I agree with findings & plan, Provider Signature (CAROLINA PHILLIPS, CHANELL Louis. Past Medical History Past Medical History: Neurologic Disorder Additional Past Medical History / Comment(s): Parkinson's, Neuropathy, Exposed to agent orange and contaminated water at [facility], has PVC's History of Any Multi-Drug Resistant Organisms: None Reported Past Surgical History: Orthopedic Surgery Additional Past Surgical History / Comment(s): left knee cyst and minuscus repair, left ankle. Past Psychological History: No Psychological Hx Reported Smoking Status: Never smoker Past Alcohol Use History: None Reported Past Drug Use History: None Reported Medications and Allergies Home Medications Medication Instructions Recorded Confirmed Type Aspirin EC [Ecotrin Low Dose] 81 mg PO DAILY 01/26/24 01/26/24 History Carbidopa-Levodopa 25-100 mg 2 tab PO TID@0700,1200,1700 01/26/24 01/26/24 His tory [Sinemet 25-100 mg] Cholecalciferol (Vitamin D3) 50 mcg PO DAILY 01/26/24 01/26/24 History [Vitamin D3 (50 Mcg = 2000 Iu)] Cyanocobalamin (Vitamin B-12) 1,000 mcg PO DAILY 01/26/24 01/26/24 History [Vitamin B-12] Multivitamins, Thera [Multivitamin 1 tab PO DAILY 01/26/24 01/26/24 History (formulary)] Pregabalin [Lyrica] 50 mg PO HS 01/26/24 01/26/24 History Psyllium Husk [Metamucil] 0.4 gm PO BID 01/26/24 01/26/24 History Rosuvastatin Calcium [Crestor] 5 mg PO DAILY 01/26/24 01/26/24 History Allergies Allergy/AdvReac Type Severity Reaction Status Date / Time No Known Allergies Allergy Verified 01/26/24 07:07 Physical Exam Vitals: Vital Signs Temp Pulse Resp BP Pulse Ox 01/26/24 10:27 48 L 18 139/73 94 L 01/26/24 06:00 45 L 16 125/64 93 L 01/26/24 02:00 48 L 18 131/69 95 01/26/24 00:00 49 L 18 119/67 95 01/25/24 22:00 55 L 18 135/72 95 01/25/24 19:40 50 L 18 150/79 96 01/25/24 18:40 98.3 F 54 L 18 183/88 98 Results CBC & Chem 7: 01/27/24 05:45 01/27/24 05:45 Labs: Abnormal Lab Results - Last 24 Hours (Table) 01/25/24 01/25/24 01/26/24 Range/Units 19:39 19:39 06:37 Glucose 124 H (74-99) mg/dL Plasma Lactic Acid Darek 2.3 H* (0.7-2.0) mmol/L HDL Cholesterol 34.80 L (40.00-60.00) mg/dL
[2024-01-26] MEDS ORDERED: ATORVASTATIN 80 MG TAB PO SCH (21:00)
[2024-01-26] MEDS: ATORVASTATIN 40 MG TAB PO SCH (21:45)
[2024-01-27 06:00] LABS: HCT 40.4 % (39.0-53.0); HGB 13.4 gm/dL (13.0-17.5); MCH 31.4 pg (25.0-35.0); MCHC 33.2 g/dL (31.0-37.0); MCV 94.5 fL (80.0-100.0); Mean Platelet Volume 7.6; Platelet Count 158 k/uL (150-450); RBC 4.28 m/uL (4.30-5.90); RDW 13.2 % (11.5-15.5); WBC 5.2 k/uL (3.8-10.6)
[2024-01-27 06:09] LABS: African American GFR (CKD) 88 (>60 ml/min/1.73 sqM); Anion Gap 1 mmol/L; Blood Urea Nitrogen 12 mg/dL (9-20); Calcium 8.4 mg/dL (8.4-10.2); Carbon Dioxide 29 mmol/L (22-30); Chloride 109 mmol/L (98-107); Glucose 89 mg/dL (74-99); Non-African American GFR(CKD) 76 (>60 ml/min/1.73 sqM); Potassium 3.9 mmol/L (3.5-5.1); Sodium 139 mmol/L (137-145)
[2024-01-27] MEDS: CYANOCOBALAMIN 500 MCG TAB PO SCH (08:15)
[2024-01-27] MEDS ORDERED: NON FORMULARY DRUG (Rosuvastatin Calcium [Crestor] 5 MG Tablet) PO SCH (09:00)
[2024-01-27 09:16] VITALS: TEMP 98.4
--- NOTE | 2024-01-27 14:40 | P.PN ---
Subjective Progress Note Date: 01/27/24 Principal diagnosis: Hospital course: Patient is a 73-year-old male past medical history of parkinsonism who presented to the ED yesterday with dizziness. He states the dizziness started yesterday at 2 PM after which he tried to rest on his recliner. His symptoms did not improve when he got up and went to his bed. A couple hours later he reports sahara t room was significantly spinning and he had difficulty with ambulation and he felt off balance. Does not report of any similar symptoms prior to this time. He mentions going to [place] a couple days ago where he drove couple hours to and fro and spent the entire day walking and shopping and had not drank enough water. Additionally he reports having motion sickness, he is dizzy even if his is in a rocking chair. Moreover he mentions that he has always had low heart rate, usually in the 50s and in the 40s when he is resting. Patient denies fever, chills, headache, chest pain, shortness of breath, palpitations, abdominal pain, nausea, vomiting, hematuria, dysuria, hematochezia or melena, numbness, weakness or visual disturbance. He also mentions that he recently found out he had been exposed to agent orange and contaminated water when he was working in the . ED documentation reviewed and case discussed with ED provider. In the ED he was treated with aspirin 325 mg and aspirin 324 mg as well as 0.9 normal saline 100 mL/h along with diphenhydramine 25 mg IVP once and ondansetron 4 mg IVP once. Vitals on admission: T 98.3 F, P 54 bpm, RR 18, BP 183/88, O2 sat 98% on room air EKG: Independently interpreted as sinus bradycardia, rate 51 bpm, QTc [address]: No acute intracranial process CT angiography head and neck: No evidence of dissection of the cervical internal carotid arteries or vertebral arteries, no evidence of significant stenosis of the carotid bifurcation, no evidence of intracranial high-grade stenosis or intracranial aneurysm. 2D Echo: EF 55 to 60% normal LV function, mild MR, mild AR, no intracardiac thrombus. CBC: WBC 7, hemoglobin 15, platelet 181 Coagulation panel: PT 10.4, INR 0.9, APTT 22 CMP sodium 139, potassium 4.2, glucose 124, lactic acid 2.3->2.0 Lipid panel triglycerides 120, cholesterol 129, LDL 70.2, VLDL 24, HDL 34.8, lipase 130 TSH: 1.5 ProBNP: 84 Troponin: < 0.012 01/27/24: Patient seen and examined today. No acute events overnight. No acute complaints. Denies dizziness, lightheadedness. Review of systems: Pertinent positives and negatives as discussed in HPI, a complete review of systems was performed and all other systems are negative. Vitals: Signs Reviewed Physical examination: General: nontoxic, no distress, appears at stated age Derm: warm, dry, intact Head: atraumatic, normocephalic, symmetric Eyes: EOMI, anicteric sclera Mouth: no lip lesion, mucus membranes moist Cardiovascular: S1 S2 reg, no murmur Lungs: CTA bilateral, no rhonchi, no rales, no accessory muscle use Abdominal: soft, non-tender to palpataion Extremities: No cyanosis, clubbing, or pedal edema. Neuro: Alert, Oriented, Gross neurological examination did not reveal any focal deficits. Psych: well appearing, appropriate affect Assessment/Plan: Patient is a 73 year old male with PMH of Parkinsonism and neuropathy who presented to the ED with dizziness and room spinning. He has admitted for further workup of dizziness. #. Postural dizziness, possibly secondary to dehydration vs vertigo Brain CT and CT angio H&N show no acute process, r/o stroke BP didn't drop upon measuring orthostatic blood pressures, r/o orthostatic hypotension Continue Aspirin 325mg PO QD and Atorvastatin 40 mg nightly and vitamin B12 1000 mcg p.o. daily Continue 0.9 normal saline changed to 75 ml/hr Brain MRI ordered yesterday per neurology, pending. Ativan 0.5mg IV once ordered for anxiety due to claustrophobia. #. Parkinson's disease Continue home med Carbidopa-Levodopa 25-100 mg 2 each p.o. 3 times daily #. Asymptomatic bradycardia Pulse rate 51 Patient's baseline is Heart rate in 50s and in 40s while resting F: 0.9 normal saline at 75ml/hr E: Replete as required N: Regular diet A: Ambulatory DVT prophylaxis: Pneumatic compression sleeve and Heparin 5000 SQ Q8HR. Attestation Attestation/ Avp Note: Attestation to Progress Note, Participation (I saw and evaluated the patient with the Resident, and I reviewed and discussed the patient with the Resident and agree with the Resident's findings and plans as documented above., management reviewed and discussed), I agree with findings & plan, Provider Signature (CAROLINA PHILLIPS, CHANELL Stevens Objective - Vital Signs Vital signs: Vital Signs Temp 97.8 F 01/27/24 00:00 Pulse 51 L 01/27/24 08:20 Resp 16 01/27/24 08:20 BP 152/77 01/27/24 08:20 Pulse Ox 98 01/27/24 08:20 FiO2 Intake & Output 01/26/24 01/27/24 01/27/24 18:59 06:59 18:59 Intake Total 500 Balance 500 Weight 79.379 kg Intake: Oral 500 Other: Voiding Method Toilet # Voids 2 - Labs CBC & Chem 7: 01/27/24 05:45 01/27/24 05:45 Labs: Abnormal Lab Results - Last 24 Hours (Table) 01/26/24 01/27/24 01/27/24 Range/Units 06:37 05:45 05:45 RBC 4.28 L (4.30-5.90) m/uL Chloride 109 H (98-107) mmol/L HDL Cholesterol 34.80 L (40.00-60.00) mg/dL
--- NOTE | 2024-01-27 14:47 | P.PN ---
Subjective Progress Note Date: 01/27/24 I am following-up with patient and he feels he is doing drastically better. Denies any further dizziness or any new neurological issues. Objective - Vital Signs Vital signs: Vital Signs Temp 98.4 F 01/27/24 09:00 Pulse 52 L 01/27/24 11:30 Resp 18 01/27/24 11:30 BP 153/76 01/27/24 11:30 Pulse Ox 97 01/27/24 11:30 FiO2 Intake & Output 01/26/24 01/27/24 01/27/24 18:59 06:59 18:59 Intake Total 500 180 Balance 500 180 Weight 79.379 kg Intake: Oral 500 180 Other: Voiding Method Toilet Toilet # Voids 2 5 - Exam GENERAL: The patient is sitting up on side of bed and is not in acute distress. NEUROLOGICAL: Higher mental function: The patient is awake, alert, oriented to self, place and time. Patient is following commands. No aphasia and no neglect. Cranial nerves: The pupils are round, equal and reactive to light and accommoda tion. Visual yung are full to confrontation throughout. Extraocular movement is intact no nystagmus is noted. Facial sensation is normal to touch throughout. The facial strength is normal throughout. Hearing is normal bilaterally to hand rub. Tongue is midline and moved [id number] without any difficulty. No dysarthria is noted. Shoulder shrug is normal bilaterally. Motor: The strength is 5 over 5 throughout. Normal tone and bulk. Cerebellum: Normal finger to nose bilaterally. Sensation: Sensation is normal to touch throughout. Reflexes (right/left): 2+ Plantars are downgoing bilaterally. Some of the work-up consists of: Orthostatic vitals: Supine 153/76, sitting 156/77 and standing is 183/73. TSH is 1.50 CT of the head is reported as no acute intracranial process. I personally reviewed the CT and I agree with the report CT angiography of the head and neck is reported as no evidence of dissection of cervical internal carotid artery or vertebral artery. No any evidence of significant stenosis at the carotid bifurcation. No evidence of intracranial high-grade stenosis or intracranial aneurysm. 2D echo was reported as normal left ventricular function. Mild mitral and aortic regurgitation. No intracardiac thrombus identified on the study. - Labs CBC & Chem 7: 01/27/24 05:45 01/27/24 05:45 Labs: Abnormal Lab Results - Last 24 Hours (Table) 01/27/24 01/27/24 Range/Units 05:45 05:45 RBC 4.28 L (4.30-5.90) m/uL Chloride 109 H (98-107) mmol/L Assessment and Plan Assessment: This is a 73-year-old gentleman who presents because of dizziness and he feels the room is moving and he had an episode of nausea vomiting. No focal deficit associate with it. He is feeling better today. Acute Vertigo and seems more peripheral. I doubt this is stroke or TIA. Orthostatic vitals is negative---Vertigo resolved Ongoing Parkinson's disease Chronic asymptomatic bradycardia (40's). Plan: Pending MRI of the brain Patient was on home dose of Aspirin 81mg daily and it was increased to 325mg daily by ED team. If MRI Brain is negative then recommend going down to home dose of 81mg daily. ED physician placed the patient on Lipitor 80 mg nightly for secondary stroke fluxes and I lowered it to 4 mg nightly since I do not feel this is stroke. Upon discharge she does not need Lipitor and he can resume his home Crestor PT and OT and SEGMENTAL PAVING SUPERVISOR are consulted. Will defer the rest of the medical management to primary team and other specialist Plan discussed with the patient and his who is at bedside If MRI Brain is negative for acute or subacute stroke, then patient is clear from neurological perspective. Time with Patient: Less than 30
[2024-01-27] MEDS: LORazepam 2 MG/ML INJ IV STA (14:59)
[2024-01-27 15:43] VITALS: RESP 17
[2024-01-27 15:44] VITALS: BP 157/75; PULSE 54
--- NOTE | 2024-01-27 16:12 | MR ---
EXAMINATION TYPE: MR brain wo/w con DATE OF EXAM: 01/27/2024 4:06 PM COMPARISON: 01/25/2024. CLINICAL INDICATION: Male, 73 years old with history of Dizziness; PHH, dizziness TECHNIQUE: Multi planar, multi sequence imaging was performed through the brain including: T1, T2, In version recovery, susceptibility weighted imaging and gradient echo imaging and Diffusion weighted im aging. The patient was then given intravenous contrast and multi planar, T1 fat-saturation images wer e obtained. IV Contrast: 8 mL Gadobutrol FINDINGS: The morataya-white junctions, ventricular system, basal cisterns appear unremarkable. Diffusion-weighted imaging shows no evidence of restricted diffusion to suggest acute/subacute infarct. Intracranial ar terial flow voids are maintained. Midline structures show no abnormality. Scattered foci of high T2 s ignal intensity are seen within the periventricular white matter. The susceptibility weighted images do not reveal any evidence for micro-hemorrhage. After administration of gadolinium, no abnormal enha ncement is seen. The bone marrow signal is within normal limits. Paranasal sinuses and mastoid air cells: No significant paranasal sinus disease. Visualized orbits: Orbital contents are intact. IMPRESSION: 1. No evidence of intracranial mass, acute/subacute infarct, or abnormal enhancement. 2. Nonspecific white matter changes, likely related to small vessel ischemic disease. [facility], , 01/27/2024 4:10 PM
[2024-01-27] MEDS: HEPARIN SODIUM,PORCINE 5,000 UNIT/ML 1 ML VIAL SQ SCH (16:19)
[2024-01-27] MEDS: SODIUM CHLORIDE 0.9% 1,000 ML IV SCH (17:05)
--- NOTE | 2024-01-27 17:27 | P.DS ---
Providers Date of admission: 01/25/24 22:03 Attending physician: Rosaura Bloom Consults: 01/25/24 22:01 Consult Physician Routine Consulting Provider: Kimberly Pickering Consult Reason/Comments: vertigo Do you want consulting provider notified?: Yes Primary care physician: Terrance King Hospital Course: Discharge diagnosis: Postural dizziness, possibly secondary to dehydration vs vertigo Parkinson's disease Asymptomatic bradycardia Hospital Course: Patient is a 73-year-old male past medical history of parkinsonism who presented to the ED yesterday with dizziness. He states the dizziness started on 01/24 at 2 PM after which he tried to rest on his recliner. His symptoms did not improve when he got up and went to his bed. A couple hours later he reports that room was significantly spinning and he had difficulty with ambulation and he felt off balance. Does not report of any similar symptoms prior to this time. He mentions going to [place] a couple days ago where he drove couple hours to and fro and spent the entire day walking and shopping and had not drank enough water. Additionally he reports having motion sickness, he is dizzy even if his is in a rocking chair. Moreover h e mentions that he has always had low heart rate, usually in the 50s and in the 40s when he is resting. Patient denies fever, chills, headache, chest pain, shortness of breath, palpitations, abdominal pain, nausea, vomiting, hematuria, dysuria, hematochezia or melena, numbness, weakness or visual disturbance. Vitals on admission: T 98.3 F, P 54 bpm, RR 18, BP 183/88, O2 sat 98% on room air EKG: Independently interpreted as sinus bradycardia, rate 51 bpm, QTc [address]: No acute intracranial process CT angiography head and neck: No evidence of dissection of the cervical internal carotid arteries or vertebral arteries, no evidence of significant stenosis of the carotid bifurcation, no evidence of intracranial high-grade stenosis or intracranial aneurysm. 2D Echo: EF 55 to 60% normal LV function, mild MR, mild AR, no intracardiac thrombus CBC: WBC 7, hemoglobin 15, platelet 181 Coagulation panel: PT 10.4, INR 0.9, APTT 22 CMP sodium 139, potassium 4.2, glucose 124, lactic acid 2.3->2.0 Lipid panel triglycerides 120, cholesterol 129, LDL 70.2, VLDL 24, HDL 34.8, lipase 130 TSH: 1.5 ProBNP: 84 Troponin: < 0.012 In the ED he was treated with aspirin 325 mg and aspirin 324 mg as well as 0.9 normal saline 100 mL/h along with diphenhydramine 25 mg IVP once and ondansetron 4 mg IVP once. Orthostatic blood pressure was performed. Blood pressure via sitting 156/77, standing 183/73, supine 153/76. Orthostatic hypotension was ruled out. brain MRI was obtained that showed no evidence of intracranial mass or acute or subacute infarct or abnormal enhancement. Nonspecific white matter changes likely related to small vessel ischemic disease. His dizziness seems to be secondary mainly to dehydration from travelling and walking all day with not enough water intake. Speech and swallow evaluation obtained, he was found to tolerate p.o. diet. Patient will be discharged today and is given a handout for dizziness and is advised to be compliant with medications as well drink enough water. Patient is advised to follow-up with his PCP in 1-2 days. Patient seen at bedside today and is feeling good and excited about discharge. Vital signs are reviewed and stable General: nontoxic, no distress, appears at stated age Derm: warm, dry, intact Head: atraumatic, normocephalic, symmetric Eyes: EOMI, anicteric sclera Mouth: no lip lesion, mucus membranes moist Cardiovascular: S1 S2 reg, no murmur Lungs: CTA bilateral, no rhonchi, no rales, no accessory muscle use Abdominal: soft, non-tender to palpataion Extremities: No cyanosis, clubbing, or pedal edema. Neuro: Alert, Oriented, Gross neurological examination did not reveal any focal deficits. Psych: well appearing, appropriate affect A total of 35 minutes of time were spent preparing this complex discharge summary. Patient was discharged on 01/27/24 at 1730. Attestation Attestation/ Employment Clerk Note: Attestation to D/C Summary, Participation (I saw and evaluated the patient with the Resident, and I reviewed and discussed the patient with the Resident and agree with the Resident's findings and plans as documented above., immediately available, management reviewed and discussed), I agree with findings & plan, Provider Signature (CAROLINA PHILLIPS, CHANELL Stevens Patient Condition at Discharge: Fair Plan - Discharge Summary New Discharge Prescriptions: Continue Rosuvastatin Calcium [Crestor] 5 mg PO DAILY Psyllium Husk [Metamucil] 0.4 gm PO BID Pregabalin [Lyrica] 50 mg PO HS Cyanocobalamin (Vitamin B-12) [Vitamin B-12] 1,000 mcg PO DAILY Cholecalciferol (Vitamin D3) [Vitamin D3 (50 Mcg = 2000 Iu)] 50 mcg PO DAILY Carbidopa-Levodopa 25-100 mg [Sinemet 25-100 mg] 2 tab PO TID@0700,1200,1700 Aspirin EC [Ecotrin Low Dose] 81 mg PO DAILY Multivitamins, Thera [Multivitamin (formulary)] 1 tab PO DAILY Discharge Medication List Aspirin EC [Ecotrin Low Dose] 81 mg PO DAILY 01/26/24 [History] Carbidopa-Levodopa 25-100 mg [Sinemet 25-100 mg] 2 tab PO TID@0700,1200,1700 01/26/24 [History] Cholecalciferol (Vitamin D3) [Vitamin D3 (50 Mcg = 2000 Iu)] 50 mcg PO DAILY 01/26/24 [History] Cyanocobalamin (Vitamin B-12) [Vitamin B-12] 1,000 mcg PO DAILY 01/26/24 [History] Multivitamins, Thera [Multivitamin (formulary)] 1 tab PO DAILY 01/26/24 [History] Pregabalin [Lyrica] 50 mg PO HS 01/26/24 [History] Psyllium Husk [Metamucil] 0.4 gm PO BID 01/26/24 [History] Rosuvastatin Calcium [Crestor] 5 mg PO DAILY 01/26/24 [History] Follow up Appointment(s)/Referral(s): Terrance King MD [Primary Care Provider] - 1-2 days Patient Instructions/Handouts: Dizziness (ED) Activity/Diet/Wound Care/Special Instructions: 81 mg Aspirin daily. Resume home Crestor. Discharge Disposition: HOME SELF-CARE
== END 2024-01-27 17:48 | disposition home or self-care (01) ==
LOC: EC 18:39 → 3SCARD 22:03
PROVIDERS: ADMIT Hospitalist; ATTEND Hospitalist
DX: R42 Dizziness and giddiness (principal); R00.1 Bradycardia, unspecified; G20.A1 Parkinson's disease without dyskinesia, without mention of fluctuations; E86.0 Dehydration; G62.9 Polyneuropathy, unspecified; Z79.82 Long term (current) use of aspirin; Z79.899 Other long term (current) drug therapy
CPT/HCPCS: 96372; 96375 ×2; 96361; 96374; 99285; 36415; 93005; 93306; 83880; 80061; 80053; 80048; 83605; 83690; 83735; 84100; 84443; 84484; 85025; 85027; 85610; 85730; 70496; 70450; 70498; 70553; G0378 ×3; J2060; J1200; J1644; J2405; Q9967; A9585